=== PATIENT | female | born 1940 | race Caucasian/White ===

== ENCOUNTER 2019-06-09 17:39 | Inpatient (IN) ==
[2019-06-09] MEDS ORDERED: SODIUM CHLORIDE 0.9% 500 ML IV STA (18:26)
[2019-06-09 19:07] LABS: Basophils % 0.1 % (0.0-0.8); Eosinophils % 0.1 % (0.00-10.9); Hematocrit 37.6 VOL% (35.7-47.0); Hemoglobin 12.9 GM/DL (12.0-16.0); Immature Granulocytes % 0.6 %; Immature Granulocytes Absolute 0.09 #; Lymphocytes # 1.6 10*3/uL (1.4-4.0); Lymphocytes % 10.5 % (21.3-54.2); Mean Corpuscular HGB Conc 34.3 GM/DL (32-36); Mean Corpuscular Volume 89.7 FL (87-102); Mean Platelet Volume 9.3 FL (9.6-12.0); Monocytes % 8.9 % (1.7-12.7); Neutrophils % 79.8 % (38.7-73.9); Platelet Count 308 T/CUMM (130-400); Red Blood Count 4.19 MC/CUMM (3.8-5.5); Red Cell Distribution Width 13.7 % (9.3-17.3); White Blood Count 15.1 T/CUMM (4-12)
[2019-06-09 19:17] LABS: PT Patient Result 11.1 SECS (9.6-12.2); Partial Thromboplastin Time 27.2 SECS (20.8-36.0)
[2019-06-09 19:27] LABS: ABG Base Excess 4.8 MMOL/L (-2.5-2.5); ABG HCO3 28.7 MMOL/L (20-26); ABG Oxygen Saturation 96.2 % (95-100); ABG PH 7.466 (7.35-7.45); ABG PO2 71.8 MM HG (80-95); Pt O2 Delivery Device Room Air
[2019-06-09 19:32] LABS: Alanine Aminotransferase 19 U/L (13-56); Alkaline Phosphatase 51 U/L (45-117); Aspartate Amino Transferase 19 U/L (0-37); Bilirubin,Total < 0.39 MG/DL (0.2-1.0); Blood Urea Nitrogen 8 MG/DL (7-18); Calcium 8.2 MG/DL (8.5-10.1); Estimated Glom Filtration Rate 72 ML/MIN; Glucose 124 MG/DL (74-106); Osmolality,Calculated 255.1 MOS/KG (273-304); Thyroid Stimulating Hormone 0.742 uIU/ml (0.358-3.74); Total Protein 6.2 G/DL (6.4-8.3)
[2019-06-09 19:34] LABS: Apearance,Urine CLOUDY (Clear); Bacteria,Urine Few /HPF (Few); Bilirubin,Urine Negative (Negative); Blood, Urine Moderate mg/dL (Negative); Glucose,Urine (UA) Negative (Negative); Ketones,Urine Negative (Negative); Nitrite,Urine Positive (Negative); Protein,Urine 30 MG/DL; RBC,Urine 11 /HPF (0-4); Squamous Epithelial Cell,Urine Occasional /HPF (0-10); Urine Color Yellow (Yellow); Urine Specific Gravity 1.012 (1.001-1.035); WBC,Urine 297 /HPF (0-6)
[2019-06-09 19:41] LABS: Barbiturates Screen,Urine Negative (Negative); Benzodiazepines Screen,Urine Negative (Negative); Cannabinoid Screen,Urine Negative (Negative); Opiate Screen,Urine Negative (Negative); Phencyclidine Screen,Urine Negative (Negative)
[2019-06-09] MEDS ORDERED: ASPIRIN CHEW 81 MG TABLET PO STA (19:54)
[2019-06-09] MEDS ORDERED: LEVOFLOXACIN INJ 500 MG in PREMIX 1 EACH IV STA (19:54)
[2019-06-09] MEDS ORDERED: methylPREDNISolone SOD SUC 125 MG/2 ML VIAL IV STA (22:02)
[2019-06-09] MEDS ORDERED: NICOTINE 21 MG/24 HR PATCH TRANSDERM PRN (22:02)
[2019-06-09] MEDS ORDERED: ONDANSETRON 4 MG/2 ML VIAL IV PRN (22:02)
[2019-06-09 22:25] LABS: Risk Ratio 4.24; VLDL CHOLESTEROL 31.6 MG/DL
[2019-06-10] MEDS: ALBUTEROL/IPRATROPIUM 3 ML NEB RESP TX SCH ×4 (00:45→20:15)
[2019-06-10] MEDS: SODIUM CHLORIDE 0.9% 1,000 ML IV SCH ×3 (01:35→22:17)
[2019-06-10] MEDS: SIMVASTATIN 40 MG TABLET PO SCH ×2 (01:36→22:01)
[2019-06-10] MEDS: METOPROLOL SUCCINATE XL 25 MG TABLET PO SCH ×2 (01:36→22:07)
[2019-06-10] MEDS: diphenhydrAMINE CAP 25 MG CAPSULE PO PRN ×2 (01:36→22:06)
[2019-06-10] MEDS: LORazepam 1 MG TABLET PO SCH ×4 (01:37→21:58)
[2019-06-10] MEDS: LISINOPRIL 5 MG TABLET PO SCH ×2 (01:37→22:07)
[2019-06-10] MEDS: GABAPENTIN 100 MG CAPSULE PO SCH ×3 (01:37→21:59)
[2019-06-10] MEDS: PANTOPRAZOLE 40 MG TABLET PO SCH ×2 (01:37→22:00)
[2019-06-10 08:11] LABS: Calcium 8.2 MG/DL (8.5-10.1); Osmolality,Calculated 267.4 MOS/KG (273-304)
[2019-06-10] MEDS ORDERED: ENOXAPARIN 40 MG/0.4 ML SYRINGE SUBCUT SCH (09:00)
[2019-06-10] MEDS ORDERED: ASPIRIN 325 MG TABLET PO SCH (09:00)
[2019-06-10] MEDS: cefTRIAXone 1,000 MG in SYRINGE 1 EACH IV SCH (10:25)
[2019-06-10] MEDS ORDERED: NITROGLYCERIN SL 0.4 MG TABLET SL PRN (14:03)
[2019-06-10] MEDS ORDERED: POTASSIUM CHLORIDE RIDER 10 MEQ in PREMIX 1 EACH IV PRN (14:10)
[2019-06-10] MEDS ORDERED: MAGNESIUM SULF RIDER 2 GM in PREMIX 1 EACH IV PRN (14:10)
[2019-06-10] MEDS ORDERED: MAGNESIUM SULF RIDER 2 GM in PREMIX 1 EACH IV ONE (14:12)
[2019-06-10] MEDS ORDERED: POTASSIUM CHLORIDE 20 MEQ TABLET PO ONE (14:12)
[2019-06-10] MEDS: ASPIRIN EC 81 MG TABLET PO SCH (14:45)
[2019-06-10] MEDS: NEOMYCIN/POLYMYXIN/BACITRACIN OINT 0.9 GM PACK TOP SCH (18:28)
[2019-06-10] MEDS ORDERED: EZETIMIBE 10 MG TABLET PO SCH (21:00)
[2019-06-10] MEDS ORDERED: LEVOFLOXACIN INJ 500 MG in PREMIX 1 EACH IV SCH (21:00)
[2019-06-10] MEDS: ENOXAPARIN 40 MG/0.4 ML SYRINGE SUBCUT SCH (22:09)
[2019-06-11] MEDS: SODIUM CHLORIDE 0.9% 1,000 ML IV SCH ×2 (00:57→11:12)
[2019-06-11] MEDS: ALBUTEROL/IPRATROPIUM 3 ML NEB RESP TX SCH ×3 (03:41→13:10)
[2019-06-11 05:43] LABS: Basophils % 0.1 % (0.0-0.8); Hemoglobin 11.1 GM/DL (12.0-16.0); Immature Granulocytes % 0.9 %; Immature Granulocytes Absolute 0.11 #; Lymphocytes # 1.3 10*3/uL (1.4-4.0); Mean Corpuscular HGB Conc 33.6 GM/DL (32-36); Mean Corpuscular Volume 91.7 FL (87-102); Mean Platelet Volume 9.6 FL (9.6-12.0); Monocytes % 8.8 % (1.7-12.7); Neutrophils % 80.2 % (38.7-73.9); Platelet Count 263 T/CUMM (130-400); Red Cell Distribution Width 13.9 % (9.3-17.3); White Blood Count 12.9 T/CUMM (4-12)
[2019-06-11 06:16] LABS: Calcium 8.2 MG/DL (8.5-10.1); Osmolality,Calculated 264.5 MOS/KG (273-304)
[2019-06-11] MEDS: cefTRIAXone 1,000 MG in SYRINGE 1 EACH IV SCH (07:47)
[2019-06-11] MEDS: LORazepam 1 MG TABLET PO SCH ×3 (07:47→21:15)
[2019-06-11] MEDS: GABAPENTIN 100 MG CAPSULE PO SCH ×2 (09:20→21:15)
[2019-06-11] MEDS: ASPIRIN EC 81 MG TABLET PO SCH (09:20)
[2019-06-11] MEDS: ENOXAPARIN 40 MG/0.4 ML SYRINGE SUBCUT SCH ×2 (09:20→21:15)
[2019-06-11] MEDS: NEOMYCIN/POLYMYXIN/BACITRACIN OINT 0.9 GM PACK TOP SCH (09:25)
[2019-06-11] MEDS ORDERED: LIDOCAINE 1% 20 ML VIAL ONE (11:22)
[2019-06-11] MEDS ORDERED: HEPARIN/NACL 0.9% 2 UNITS/ML 1,000 ML IV ONE (11:22)
[2019-06-11] MEDS ORDERED: NITROGLYCERIN DRIP 50 MG/250 ML BOTTLE IV ONE (11:43)
[2019-06-11] MEDS ORDERED: VERAPAMIL 5 MG/2 ML VIAL ONE (11:43)
[2019-06-11] MEDS ORDERED: HYDROmorphone 2 MG/1 ML VIAL ONE (11:45)
[2019-06-11] MEDS ORDERED: MIDAZOLAM 2 MG/2 ML VIAL ONE (11:46)
[2019-06-11] MEDS ORDERED: diphenhydrAMINE CAP 25 MG CAPSULE PO ONE (12:00)
[2019-06-11] MEDS ORDERED: DIAZEPAM 5 MG TABLET PO ONE (12:00)
[2019-06-11] MEDS ORDERED: BIVALIRUDIN 250 MG VIAL IV ONE (12:01)
[2019-06-11] MEDS ORDERED: TICAGRELOR 90 MG TABLET ONE (12:26)
[2019-06-11] MEDS ORDERED: SODIUM CHLORIDE 0.9% 1,000 ML IV SCH (12:30)
[2019-06-11] MEDS: DILTIAZEM CD 180 MG CAPSULE PO SCH (18:42)
[2019-06-11] MEDS ORDERED: ROSUVASTATIN 20 MG TABLET PO SCH (21:00)
[2019-06-11] MEDS: PANTOPRAZOLE 40 MG TABLET PO SCH (21:14)
[2019-06-11] MEDS: METOPROLOL SUCCINATE XL 25 MG TABLET PO SCH (21:14)
[2019-06-11] MEDS: ASCORBIC ACID 500 MG TABLET PO SCH (21:14)
[2019-06-11] MEDS: LISINOPRIL 5 MG TABLET PO SCH (21:15)
[2019-06-11] MEDS: diphenhydrAMINE CAP 25 MG CAPSULE PO PRN (21:35)
[2019-06-12] MEDS: SODIUM CHLORIDE 0.9% 1,000 ML IV SCH ×2 (00:55→14:05)
[2019-06-12 04:29] LABS: Basophils % 0.1 % (0.0-0.8); Eosinophils # 0.1 10*3/uL (0.0-0.87); Eosinophils % 0.4 % (0.00-10.9); Hematocrit 31.8 VOL% (35.7-47.0); Hemoglobin 10.5 GM/DL (12.0-16.0); Immature Granulocytes % 0.5 %; Immature Granulocytes Absolute 0.07 #; Lymphocytes % 14.4 % (21.3-54.2); Mean Platelet Volume 9.6 FL (9.6-12.0); Monocytes % 11.8 % (1.7-12.7); Neutrophils % 72.8 % (38.7-73.9); Platelet Count 289 T/CUMM (130-400); Red Blood Count 3.42 MC/CUMM (3.8-5.5); Red Cell Distribution Width 14.4 % (9.3-17.3); White Blood Count 13.6 T/CUMM (4-12)
[2019-06-12 04:52] LABS: Blood Urea Nitrogen 8 MG/DL (7-18); Calcium 8.2 MG/DL (8.5-10.1); Estimated Glom Filtration Rate 79 ML/MIN; Glucose 126 MG/DL (74-106); Osmolality,Calculated 261.7 MOS/KG (273-304)
[2019-06-12 04:54] LABS: Troponin I 0.084 NG/ML (0.00-0.045)
[2019-06-12] MEDS: LORazepam 1 MG TABLET PO SCH ×2 (06:24→13:11)
[2019-06-12] MEDS: ASCORBIC ACID 500 MG TABLET PO SCH (08:43)
[2019-06-12] MEDS: DILTIAZEM CD 180 MG CAPSULE PO SCH (08:43)
[2019-06-12] MEDS: ASPIRIN EC 81 MG TABLET PO SCH (08:43)
[2019-06-12] MEDS: GABAPENTIN 100 MG CAPSULE PO SCH (08:43)
[2019-06-12] MEDS: cefTRIAXone 1,000 MG in SYRINGE 1 EACH IV SCH (08:50)
[2019-06-12] MEDS: ENOXAPARIN 40 MG/0.4 ML SYRINGE SUBCUT SCH (08:53)
[2019-06-12] MEDS ORDERED: MAGNESIUM SULF RIDER 2 GM in PREMIX 1 EACH IV ONE (12:14)
[2019-06-12] MEDS ORDERED: MAGNESIUM OXIDE 400 MG TABLET PO SCH (12:30)
[2019-06-12] MEDS ORDERED: POTASSIUM CHLORIDE 20 MEQ TABLET PO SCH (12:30)
[2019-06-12] MEDS ORDERED: TICAGRELOR 90 MG TABLET PO SCH (12:30)
[2019-06-12 15:59] VITALS: BP 131/68
== END 2019-06-12 16:40 | disposition home health service (06) | DRG 247 ==
LOC: EDUNIT# → EDBD → N.EDINP 17:39 → N.ED 17:39 → N.TELES 23:30 → SUATTDRO 06-10 03:20
PROVIDERS: ADMIT Hospitalist; ATTEND Hospitalist

== ENCOUNTER 2020-01-24 08:35 | Inpatient (IN) ==
[2020-01-24 09:49] LABS: Basophils % 0.3 % (0.0-0.8); Eosinophils # 0.1 10*3/uL (0.0-0.87); Eosinophils % 0.5 % (0.00-10.9); Hematocrit 38.1 VOL% (35.7-47.0); Hemoglobin 12.9 GM/DL (12.0-16.0); Immature Granulocytes % 0.4 %; Immature Granulocytes Absolute 0.05 #; Lymphocytes # 1.6 10*3/uL (1.4-4.0); Lymphocytes % 12.3 % (21.3-54.2); Mean Corpuscular HGB Conc 33.9 GM/DL (32-36); Mean Corpuscular Volume 94.8 FL (87-102); Mean Platelet Volume 9.3 FL (9.6-12.0); Monocytes % 7.3 % (1.7-12.7); Neutrophils % 79.2 % (38.7-73.9); Platelet Count 283 T/CUMM (130-400); Red Blood Count 4.02 MC/CUMM (3.8-5.5); Red Cell Distribution Width 14.4 % (9.3-17.3); White Blood Count 12.8 T/CUMM (4-12)
[2020-01-24 10:09] LABS: Apearance,Urine CLEAR (Clear); Bilirubin,Urine Negative (Negative); Blood, Urine Negative (Negative); Glucose,Urine (UA) Negative (Negative); Hyaline Casts,Urine 1 /LPF (0-3); Ketones,Urine Negative (Negative); Nitrite,Urine Negative (Negative); Protein,Urine Negative; RBC,Urine <1 /HPF (0-4); Urine Color Yellow (Yellow); Urine Specific Gravity 1.009 (1.001-1.035); Urine Urobilinogen < 2.0 EU/DL (0.2-1.0); WBC,Urine 1 /HPF (0-6)
[2020-01-24 10:14] LABS: Alanine Aminotransferase 18 U/L (13-56); Albumin 2.8 G/DL (3.4-5.0); Alkaline Phosphatase 60 U/L (45-117); Aspartate Amino Transferase 18 U/L (0-37); Bilirubin,Total < 0.39 MG/DL (0.2-1.0); Blood Urea Nitrogen 7 MG/DL (7-18); Calcium 8.6 MG/DL (8.5-10.1); Estimated Glom Filtration Rate 69 ML/MIN; Glucose 97 MG/DL (74-106); Osmolality,Calculated 263.4 MOS/KG (273-304); Prealbumin 13.4 MG/DL (20-40); Total Protein 6.6 G/DL (6.4-8.3)
[2020-01-24] MEDS ORDERED: POTASSIUM CHLORIDE 20 MEQ TABLET PO STA (11:09)
[2020-01-24] MEDS ORDERED: ONDANSETRON 4 MG/2 ML VIAL IV PRN (12:35)
[2020-01-24] MEDS ORDERED: hydrALAZINE 20 MG/1 ML VIAL IV PRN (12:35)
[2020-01-24] MEDS ORDERED: GLUCAGON 1 MG VIAL IM PRN (12:35)
[2020-01-24] MEDS ORDERED: ACETAMINOPHEN 325 MG TABLET PO PRN (12:35)
[2020-01-24] MEDS ORDERED: DEXTROSE 50% 25 GM/50 ML VIAL IV PRN (12:35)
[2020-01-24 13:09] LABS: Risk Ratio 3.91; Thyroid Stimulating Hormone 2.66 uIU/ml (0.358-3.74)
[2020-01-24] MEDS: POTASSIUM CHLORIDE INJ 30 MEQ in DEXTROSE 5% NACL 0.45% 1,000 ML IV SCH (15:11)
[2020-01-24] MEDS: POTASSIUM CHLORIDE RIDER 10 MEQ in PREMIX 1 EACH IV PRN ×2 (15:57→17:31)
[2020-01-24 16:19] LABS: ABG Base Excess 8.6 MMOL/L (-2.5-2.5); ABG HCO3 32.3 MMOL/L (20-26); ABG Oxygen Saturation 93.7 % (95-100); ABG PCO2 56.2 MM HG (35-48); ABG PH 7.408 (7.35-7.45); ABG PO2 69.2 MM HG (80-95); ABG TCO2 30.9 MMOL/L (23-27); Allen Test Positive; Pt O2 Delivery Device Room Air
[2020-01-24] MEDS: DILTIAZEM CD 180 MG CAPSULE PO SCH (16:48)
[2020-01-24] MEDS: CHOLECALCIFEROL 1,000 UNIT TABLET PO SCH (16:48)
[2020-01-24] MEDS: CIPROFLOXACIN INJ 400 MG in PREMIX 1 EACH IV SCH (16:49)
[2020-01-24] MEDS: CYANOCOBALAMIN 500 MCG TABLET PO SCH (16:49)
[2020-01-24] MEDS: FERROUS SULFATE 325 MG TABLET PO SCH (16:49)
[2020-01-24] MEDS: cefTRIAXone 1,000 MG in SYRINGE 1 EACH IV SCH (17:33)
[2020-01-24] MEDS: metroNIDAZOLE INJ 500 MG in PREMIX 1 EACH IV SCH (18:31)
[2020-01-24] MEDS: CARBOXYMETHYLCELLULOSE 1% OPH SOLN BOTH EYES SCH ×2 (18:37→22:46)
[2020-01-24] MEDS ORDERED: ROSUVASTATIN 20 MG TABLET PO SCH (21:00)
[2020-01-24] MEDS ORDERED: METOPROLOL SUCCINATE XL 25 MG TABLET PO SCH (21:00)
[2020-01-24] MEDS: LORazepam 1 MG TABLET PO SCH (22:09)
[2020-01-24] MEDS: FAMOTIDINE 20 MG TABLET PO SCH (22:09)
[2020-01-24] MEDS: GABAPENTIN 100 MG CAPSULE PO SCH (22:14)
[2020-01-24] MEDS: ASCORBIC ACID 500 MG TABLET PO SCH (22:15)
[2020-01-24] MEDS: MAGNESIUM OXIDE 400 MG TABLET PO SCH (22:17)
[2020-01-24] MEDS: KETOROLAC 0.5% OPH SOLN 5 ML BOTTLE BOTH EYES SCH (22:46)
[2020-01-24] MEDS: OFLOXACIN 0.3% OPH SOLN 5 ML BOTTLE BOTH EYES SCH (22:46)
[2020-01-24] MEDS: prednisoLONE ACETATE 1% OPH SUSP 5 ML BOTTLE BOTH EYES SCH (22:46)
[2020-01-25] MEDS: POTASSIUM CHLORIDE INJ 30 MEQ in DEXTROSE 5% NACL 0.45% 1,000 ML IV SCH ×3 (00:35→12:05)
[2020-01-25] MEDS: metroNIDAZOLE INJ 500 MG in PREMIX 1 EACH IV SCH ×3 (00:43→17:41)
[2020-01-25] MEDS: CIPROFLOXACIN INJ 400 MG in PREMIX 1 EACH IV SCH ×2 (05:15→16:47)
[2020-01-25 06:30] LABS: Basophils % 0.2 % (0.0-0.8); Eosinophils # 0.1 10*3/uL (0.0-0.87); Eosinophils % 0.6 % (0.00-10.9); Hematocrit 32.9 VOL% (35.7-47.0); Immature Granulocytes % 0.5 %; Immature Granulocytes Absolute 0.04 #; Lymphocytes # 2.3 10*3/uL (1.4-4.0); Lymphocytes % 26.6 % (21.3-54.2); Mean Corpuscular HGB Conc 32.2 GM/DL (32-36); Mean Corpuscular Volume 98.2 FL (87-102); Mean Platelet Volume 9.7 FL (9.6-12.0); Monocytes % 9.7 % (1.7-12.7); Neutrophils % 62.4 % (38.7-73.9); Platelet Count 290 T/CUMM (130-400); Red Blood Count 3.35 MC/CUMM (3.8-5.5); Red Cell Distribution Width 14.6 % (9.3-17.3); White Blood Count 8.5 T/CUMM (4-12)
[2020-01-25 06:33] LABS: Albumin 2.5 G/DL (3.4-5.0); Bilirubin,Total 0.5 MG/DL (0.2-1.0); Calcium 8.4 MG/DL (8.5-10.1); Hemoglobin 10.6 GM/DL (12.0-16.0); Osmolality,Calculated 264.4 MOS/KG (273-304); Total Protein 5.9 G/DL (6.4-8.3)
[2020-01-25] MEDS: LORazepam 1 MG TABLET PO SCH ×3 (07:18→22:00)
[2020-01-25] MEDS ORDERED: PANTOPRAZOLE 40 MG TABLET PO SCH (09:00)
[2020-01-25] MEDS ORDERED: ALUM/MAG/SIMETH/LIDO VISC 1:1 30 ML BOTTLE PO ONE (09:25)
[2020-01-25] MEDS ORDERED: KETOROLAC 15 MG/1 ML VIAL IV ONE (09:26)
[2020-01-25] MEDS: KETOROLAC 0.5% OPH SOLN 5 ML BOTTLE BOTH EYES SCH ×2 (09:33→22:54)
[2020-01-25] MEDS: FAMOTIDINE 20 MG TABLET PO SCH ×2 (09:33→23:00)
[2020-01-25] MEDS: OFLOXACIN 0.3% OPH SOLN 5 ML BOTTLE BOTH EYES SCH ×2 (09:33→22:57)
[2020-01-25] MEDS: FERROUS SULFATE 325 MG TABLET PO SCH (09:34)
[2020-01-25] MEDS: DILTIAZEM CD 180 MG CAPSULE PO SCH (09:34)
[2020-01-25] MEDS: GABAPENTIN 100 MG CAPSULE PO SCH ×2 (09:36→23:00)
[2020-01-25] MEDS: CHOLECALCIFEROL 1,000 UNIT TABLET PO SCH ×2 (09:36→23:01)
[2020-01-25] MEDS: ASPIRIN EC 81 MG TABLET PO SCH (09:36)
[2020-01-25] MEDS: ASCORBIC ACID 500 MG TABLET PO SCH ×2 (09:36→23:01)
[2020-01-25] MEDS: MAGNESIUM OXIDE 400 MG TABLET PO SCH ×2 (09:36→23:00)
[2020-01-25] MEDS: CARBOXYMETHYLCELLULOSE 1% OPH SOLN BOTH EYES SCH ×4 (09:38→22:58)
[2020-01-25] MEDS: prednisoLONE ACETATE 1% OPH SUSP 5 ML BOTTLE BOTH EYES SCH ×2 (09:38→22:59)
[2020-01-25 11:28] LABS: Troponin I < 0.015 NG/ML (0.00-0.045)
[2020-01-25 14:40] LABS: Troponin I < 0.015 NG/ML (0.00-0.045)
[2020-01-25] MEDS: SODIUM CHLORIDE 0.9% 1,000 ML IV SCH ×4 (14:42→17:40)
[2020-01-25] MEDS: cefTRIAXone 1,000 MG in SYRINGE 1 EACH IV SCH (16:24)
[2020-01-25] MEDS ORDERED: SODIUM CHLORIDE 0.9% 1,000 ML IV SCH (19:00)
[2020-01-25 19:25] LABS: Amorphous Crystals,Urine Occasional /HPF (Few); Apearance,Urine Slightly Hazy (Clear); Bacteria,Urine Many /HPF (Few); Bilirubin,Urine Negative (Negative); Blood, Urine Small mg/dL (Negative); Glucose,Urine (UA) Negative (Negative); Hyaline Casts,Urine 8 /LPF (0-3); Ketones,Urine Negative (Negative); Mucus,Urine Occasional /LPF (Occasional); Nitrite,Urine Negative (Negative); Protein,Urine Negative; RBC,Urine 4 /HPF (0-4); Squamous Epithelial Cell,Urine Occasional /HPF (0-10); Urine Color Yellow (Yellow); Urine Specific Gravity 1.029 (1.001-1.035); Urine Urobilinogen < 2.0 EU/DL (0.2-1.0)
[2020-01-25] MEDS ORDERED: CLOPIDOGREL 75 MG TABLET PO SCH (21:00)
[2020-01-25] MEDS: ROSUVASTATIN 20 MG TABLET PO SCH (23:01)
[2020-01-26] MEDS: metroNIDAZOLE INJ 500 MG in PREMIX 1 EACH IV SCH ×3 (00:37→17:30)
[2020-01-26] MEDS: CIPROFLOXACIN INJ 400 MG in PREMIX 1 EACH IV SCH ×2 (04:42→16:25)
[2020-01-26 06:19] LABS: Basophils % 0.3 % (0.0-0.8); Eosinophils # 0.1 10*3/uL (0.0-0.87); Eosinophils % 0.8 % (0.00-10.9); Hematocrit 34.8 VOL% (35.7-47.0); Hemoglobin 11.3 GM/DL (12.0-16.0); Immature Granulocytes % 0.5 %; Immature Granulocytes Absolute 0.04 #; Lymphocytes # 1.5 10*3/uL (1.4-4.0); Lymphocytes % 17.1 % (21.3-54.2); Mean Corpuscular HGB Conc 32.5 GM/DL (32-36); Mean Corpuscular Volume 96.4 FL (87-102); Mean Platelet Volume 9.9 FL (9.6-12.0); Monocytes % 9.6 % (1.7-12.7); Neutrophils % 71.7 % (38.7-73.9); Platelet Count 269 T/CUMM (130-400); Red Blood Count 3.61 MC/CUMM (3.8-5.5); Red Cell Distribution Width 14.3 % (9.3-17.3); White Blood Count 8.8 T/CUMM (4-12)
[2020-01-26 06:51] LABS: Calcium 8.6 MG/DL (8.5-10.1); Osmolality,Calculated 265.1 MOS/KG (273-304)
[2020-01-26 06:54] LABS: Albumin 2.6 G/DL (3.4-5.0); Bilirubin,Total 0.4 MG/DL (0.2-1.0); Calcium 8.8 MG/DL (8.5-10.1); Osmolality,Calculated 264.2 MOS/KG (273-304); Total Protein 6.1 G/DL (6.4-8.3)
[2020-01-26] MEDS: ASPIRIN EC 81 MG TABLET PO SCH (08:51)
[2020-01-26] MEDS: CYANOCOBALAMIN 500 MCG TABLET PO SCH (08:51)
[2020-01-26] MEDS: CHOLECALCIFEROL 1,000 UNIT TABLET PO SCH ×3 (08:52→21:46)
[2020-01-26] MEDS: FERROUS SULFATE 325 MG TABLET PO SCH (08:54)
[2020-01-26] MEDS: OFLOXACIN 0.3% OPH SOLN 5 ML BOTTLE BOTH EYES SCH ×2 (08:54→21:44)
[2020-01-26] MEDS: GABAPENTIN 100 MG CAPSULE PO SCH ×2 (08:54→21:40)
[2020-01-26] MEDS: FAMOTIDINE 20 MG TABLET PO SCH ×2 (08:54→21:39)
[2020-01-26] MEDS: MAGNESIUM OXIDE 400 MG TABLET PO SCH ×2 (08:54→21:40)
[2020-01-26] MEDS: ASCORBIC ACID 500 MG TABLET PO SCH ×2 (08:54→21:41)
[2020-01-26] MEDS: CARBOXYMETHYLCELLULOSE 1% OPH SOLN BOTH EYES SCH ×4 (08:55→21:41)
[2020-01-26] MEDS: prednisoLONE ACETATE 1% OPH SUSP 5 ML BOTTLE BOTH EYES SCH ×2 (08:55→21:43)
[2020-01-26] MEDS: KETOROLAC 0.5% OPH SOLN 5 ML BOTTLE BOTH EYES SCH ×2 (09:01→21:41)
[2020-01-26] MEDS: LORazepam 1 MG TABLET PO SCH ×3 (09:10→21:40)
[2020-01-26] MEDS: POTASSIUM CHLORIDE RIDER 10 MEQ in PREMIX 1 EACH IV SCH ×2 (12:53→14:20)
[2020-01-26] MEDS: cefTRIAXone 1,000 MG in SYRINGE 1 EACH IV SCH (18:25)
[2020-01-26] MEDS: ROSUVASTATIN 20 MG TABLET PO SCH (21:39)
[2020-01-27] MEDS: metroNIDAZOLE INJ 500 MG in PREMIX 1 EACH IV SCH ×2 (00:54→09:10)
[2020-01-27] MEDS: CIPROFLOXACIN INJ 400 MG in PREMIX 1 EACH IV SCH (05:02)
[2020-01-27 05:48] LABS: Basophils # 0.1 10*3/uL (0.0-0.2); Basophils % 0.6 % (0.0-0.8); Eosinophils # 0.1 10*3/uL (0.0-0.87); Eosinophils % 0.9 % (0.00-10.9); Hematocrit 37.2 VOL% (35.7-47.0); Hemoglobin 12.5 GM/DL (12.0-16.0); Immature Granulocytes % 0.3 %; Immature Granulocytes Absolute 0.03 #; Lymphocytes # 1.8 10*3/uL (1.4-4.0); Lymphocytes % 17.2 % (21.3-54.2); Mean Corpuscular HGB Conc 33.6 GM/DL (32-36); Mean Corpuscular Volume 92.5 FL (87-102); Monocytes % 9.7 % (1.7-12.7); Neutrophils % 71.3 % (38.7-73.9); Platelet Count 309 T/CUMM (130-400); Red Blood Count 4.02 MC/CUMM (3.8-5.5); Red Cell Distribution Width 13.8 % (9.3-17.3); White Blood Count 10.7 T/CUMM (4-12)
[2020-01-27 06:02] LABS: Albumin 2.9 G/DL (3.4-5.0); Calcium 9.2 MG/DL (8.5-10.1); Osmolality,Calculated 260.5 MOS/KG (273-304); Total Protein 6.8 G/DL (6.4-8.3)
[2020-01-27] MEDS: LORazepam 1 MG TABLET PO SCH ×2 (06:24→13:51)
[2020-01-27] MEDS: KETOROLAC 0.5% OPH SOLN 5 ML BOTTLE BOTH EYES SCH (09:10)
[2020-01-27] MEDS: FAMOTIDINE 20 MG TABLET PO SCH (09:11)
[2020-01-27] MEDS: FERROUS SULFATE 325 MG TABLET PO SCH (09:11)
[2020-01-27] MEDS: OFLOXACIN 0.3% OPH SOLN 5 ML BOTTLE BOTH EYES SCH (09:11)
[2020-01-27] MEDS: MAGNESIUM OXIDE 400 MG TABLET PO SCH (09:11)
[2020-01-27] MEDS: prednisoLONE ACETATE 1% OPH SUSP 5 ML BOTTLE BOTH EYES SCH (09:11)
[2020-01-27] MEDS: CARBOXYMETHYLCELLULOSE 1% OPH SOLN BOTH EYES SCH ×2 (09:11→13:51)
[2020-01-27] MEDS: GABAPENTIN 100 MG CAPSULE PO SCH (09:11)
[2020-01-27] MEDS: CHOLECALCIFEROL 1,000 UNIT TABLET PO SCH ×2 (09:11)
[2020-01-27] MEDS: ASCORBIC ACID 500 MG TABLET PO SCH (09:11)
[2020-01-27] MEDS: ASPIRIN EC 81 MG TABLET PO SCH (09:11)
[2020-01-27 12:19] VITALS: BP 143/62
== END 2020-01-27 13:02 | disposition home or self-care (01) | DRG 312 ==
LOC: EDUNIT# → EDBD → N.ED 08:35 → N.EDINP 12:35 → SUATTDRO 12:35 → N.EDINP 14:14 → N.TELEN 14:30
PROVIDERS: ADMIT Hospitalist; ATTEND Internal Medicine

== ENCOUNTER 2021-08-21 16:31 | Inpatient (IN) ==
[2021-08-21] MEDS ORDERED: ONDANSETRON 4 MG/2 ML VIAL IV STA (17:36)
[2021-08-21] MEDS ORDERED: HYDROmorphone 2 MG/1 ML VIAL IV STA (17:36)
[2021-08-21 18:58] LABS: Basophils # 0.1 10*3/uL (0.0-0.2); Basophils % 0.5 % (0.0-0.8); Eosinophils # 0.1 10*3/uL (0.0-0.87); Eosinophils % 0.8 % (0.00-10.9); Hematocrit 41.2 VOL% (35.7-47.0); Hemoglobin 13.5 GM/DL (12.0-16.0); Immature Granulocytes % 0.4 %; Immature Granulocytes Absolute 0.04 #; Lymphocytes # 1.7 10*3/uL (1.4-4.0); Lymphocytes % 16.7 % (21.3-54.2); Mean Corpuscular HGB Conc 32.8 GM/DL (32-36); Mean Corpuscular Volume 95.6 FL (87-102); Mean Platelet Volume 9.4 FL (9.6-12.0); Monocytes % 6.7 % (1.7-12.7); Neutrophils % 74.9 % (38.7-73.9); Platelet Count 351 T/CUMM (130-400); Red Blood Count 4.31 MC/CUMM (3.8-5.5); Red Cell Distribution Width 14.5 % (9.3-17.3)
[2021-08-21 19:12] LABS: Alanine Aminotransferase 18 U/L (13-56); Albumin 3.3 G/DL (3.4-5.0); Alkaline Phosphatase 67 U/L (45-117); Aspartate Amino Transferase 18 U/L (0-37); Bilirubin,Total < 0.39 MG/DL (0.20-1.00); Blood Urea Nitrogen 10 MG/DL (7-18); Carbon Dioxide 33 MMOL/L (21-32); Estimated Glom Filtration Rate 75 ML/MIN; Glucose 131 MG/DL (74-106); Osmolality,Calculated 266.4 MOS/KG (273-304); Potassium 3.9 MMOL/L (3.5-5.1); Sodium 133 MMOL/L (136-145); Total Protein 7.1 G/DL (6.4-8.2)
[2021-08-21 19:17] LABS: PT Patient Result 11.2 SECS (10.5-12.0)
[2021-08-21] MEDS ORDERED: GLUCAGON 1 MG VIAL IM PRN (19:22)
[2021-08-21] MEDS ORDERED: DOCUSATE SODIUM 100 MG CAPSULE PO PRN (19:28)
[2021-08-21] MEDS ORDERED: LACTULOSE 20 GM/30 ML UDCUP PO PRN (19:28)
[2021-08-21] MEDS ORDERED: DEXTROSE 10% 250 ML BAG IV PRN (19:42)
[2021-08-21] MEDS: LACTULOSE 20 GM/30 ML UDCUP PO SCH (19:48)
[2021-08-21] MEDS: HYDROmorphone 2 MG/1 ML VIAL IV PRN (19:49)
[2021-08-21] MEDS ORDERED: LORazepam 1 MG TABLET PO STA (20:31)
[2021-08-21] MEDS: ONDANSETRON 4 MG/2 ML VIAL IV PRN (20:45)
[2021-08-21] MEDS: methylPREDNISolone SOD SUC 40 MG/1 ML VIAL IV SCH (20:49)
[2021-08-21] MEDS ORDERED: methylPREDNISolone SOD SUC 40 MG/1 ML VIAL ONE (20:51)
[2021-08-22] MEDS: ALBUTEROL/IPRATROPIUM 3 ML NEB RESP TX SCH ×4 (00:54→19:35)
[2021-08-22] MEDS: LACTULOSE 20 GM/30 ML UDCUP PO SCH ×7 (01:23→23:47)
[2021-08-22] MEDS: HYDROmorphone 2 MG/1 ML VIAL IV PRN ×2 (01:23→09:09)
[2021-08-22] MEDS: ONDANSETRON 4 MG/2 ML VIAL IV PRN ×3 (01:24→22:44)
[2021-08-22 05:26] LABS: Basophils % 0.2 % (0.0-0.8); Hematocrit 41.6 VOL% (35.7-47.0); Hemoglobin 13.4 GM/DL (12.0-16.0); Immature Granulocytes % 0.8 %; Immature Granulocytes Absolute 0.09 #; Lymphocytes # 0.4 10*3/uL (1.4-4.0); Lymphocytes % 3.3 % (21.3-54.2); Mean Corpuscular HGB Conc 32.2 GM/DL (32-36); Mean Corpuscular Volume 95.6 FL (87-102); Mean Platelet Volume 9.8 FL (9.6-12.0); Monocytes % 1.3 % (1.7-12.7); Neutrophils % 94.4 % (38.7-73.9); Platelet Count 333 T/CUMM (130-400); Red Blood Count 4.35 MC/CUMM (3.8-5.5); Red Cell Distribution Width 14.5 % (9.3-17.3); White Blood Count 11.1 T/CUMM (4-12)
[2021-08-22 05:42] LABS: Calcium 9.2 MG/DL (8.5-10.1); Osmolality,Calculated 273.5 MOS/KG (273-304); Potassium 3.7 MMOL/L (3.5-5.1)
[2021-08-22 06:22] LABS: Lymphocytes 3 % (20-55); Platelet Estimate Adequate; Segmented Neutrophils 97 % (50-85); Total Cells Counted 100
[2021-08-22] MEDS ORDERED: DEXTROSE 50% 25 GM/50 ML VIAL IV PRN (06:38)
[2021-08-22] MEDS: methylPREDNISolone SOD SUC 40 MG/1 ML VIAL IV SCH ×2 (09:09→20:32)
[2021-08-22] MEDS: ASPIRIN EC 81 MG TABLET PO SCH (10:31)
[2021-08-22] MEDS: INSULIN LISPRO 100 UNIT/ML SUBCUT SCH ×4 (10:31→21:35)
[2021-08-22] MEDS: PANTOPRAZOLE 40 MG TABLET PO SCH (10:32)
[2021-08-22] MEDS: DILTIAZEM CD 180 MG CAPSULE PO SCH (10:32)
[2021-08-22] MEDS: LORazepam 1 MG TABLET PO SCH ×3 (10:32→20:33)
[2021-08-22] MEDS ORDERED: BUPIVACAINE SPINAL 0.75% 2 ML AMP SPINAL ONE (10:40)
[2021-08-22] MEDS ORDERED: DEXMEDETOMIDINE 200 MCG/2 ML VIAL ONE (10:40)
[2021-08-22] MEDS ORDERED: ONDANSETRON 4 MG/2 ML VIAL ONE (10:40)
[2021-08-22] MEDS ORDERED: BUPIVACAINE MPF 0.25% 30 ML VIAL ONE (11:15)
[2021-08-22] MEDS ORDERED: DEXAMETHASONE 4 MG/1 ML VIAL ONE (11:15)
[2021-08-22] MEDS ORDERED: LIDOCAINE 1% 5 ML VIAL ONE (11:16)
[2021-08-22] MEDS ORDERED: BACITRACIN OINT 0.9 GM PACK TOP ONE (11:33)
[2021-08-22] MEDS ORDERED: LACTATED RINGERS 1,000 ML IV SCH (12:00)
[2021-08-22] MEDS ORDERED: ALBUTEROL 1.25 MG/3 ML NEB RESP TX PRN (12:15)
[2021-08-22] MEDS ORDERED: oxyCODONE/ACETAMINOPHEN 5-325 MG TABLET PO PRN ×2 (12:31)
[2021-08-22] MEDS ORDERED: GLYCOPYRROLATE 0.4 MG/2 ML VIAL ONE (12:46)
[2021-08-22] MEDS ORDERED: TRANEXAMIC ACID 1,000 MG/10 ML VIAL ONE (13:04)
[2021-08-22] MEDS: LACTATED RINGERS 1,000 ML IV SCH ×2 (14:16→17:12)
[2021-08-22] MEDS: CARBOXYMETHYLCELLULOSE 1% OPH SOLN BOTH EYES SCH ×2 (17:12→21:35)
[2021-08-22] MEDS ORDERED: hydrALAZINE 20 MG/1 ML VIAL IV PRN (18:18)
[2021-08-22] MEDS: ROSUVASTATIN 20 MG TABLET PO SCH (20:32)
[2021-08-22] MEDS: traZODone 50 MG TABLET PO PRN (20:33)
[2021-08-22] MEDS: GABAPENTIN 100 MG CAPSULE PO SCH (20:33)
[2021-08-22] MEDS: ASCORBIC ACID 500 MG TABLET PO SCH (20:33)
[2021-08-22] MEDS ORDERED: diphenhydrAMINE CAP 50 MG CAPSULE PO PRN (22:58)
[2021-08-22] MEDS: ACETAMINOPHEN 325 MG TABLET PO PRN (23:42)
[2021-08-22] MEDS: diphenhydrAMINE CAP 25 MG CAPSULE PO PRN (23:42)
[2021-08-23] MEDS: ALBUTEROL/IPRATROPIUM 3 ML NEB RESP TX SCH ×4 (00:50→19:35)
[2021-08-23] MEDS: LACTULOSE 20 GM/30 ML UDCUP PO SCH ×2 (03:38→08:36)
[2021-08-23] MEDS: LACTATED RINGERS 1,000 ML IV SCH (03:39)
[2021-08-23 05:24] LABS: Basophils % 0.2 % (0.0-0.8); Hematocrit 31.8 VOL% (35.7-47.0); Hemoglobin 10.4 GM/DL (12.0-16.0); Immature Granulocytes % 0.5 %; Immature Granulocytes Absolute 0.07 #; Lymphocytes # 0.7 10*3/uL (1.4-4.0); Lymphocytes % 5.2 % (21.3-54.2); Mean Corpuscular HGB Conc 32.7 GM/DL (32-36); Mean Corpuscular Volume 94.6 FL (87-102); Mean Platelet Volume 10.2 FL (9.6-12.0); Monocytes % 3.1 % (1.7-12.7); Platelet Count 249 T/CUMM (130-400); Red Blood Count 3.36 MC/CUMM (3.8-5.5); Red Cell Distribution Width 14.3 % (9.3-17.3)
[2021-08-23 05:45] LABS: Calcium 8.4 MG/DL (8.5-10.1); Osmolality,Calculated 263.7 MOS/KG (273-304); Potassium 3.8 MMOL/L (3.5-5.1)
[2021-08-23 05:48] LABS: Hypochromia Slight; Lymphocytes 5 % (20-55); Microcytosis Slight; Platelet Estimate Adequate; Segmented Neutrophils 94 % (50-85); Total Cells Counted 100
[2021-08-23 05:50] LABS: Risk Ratio 2.86; VLDL Cholesterol 16.4 MG/DL
[2021-08-23] MEDS ORDERED: KETOROLAC 15 MG/1 ML VIAL IV PRN (07:55)
[2021-08-23] MEDS: ROSUVASTATIN 20 MG TABLET PO SCH (08:34)
[2021-08-23] MEDS: ASPIRIN EC 81 MG TABLET PO SCH (08:34)
[2021-08-23] MEDS: DILTIAZEM CD 180 MG CAPSULE PO SCH (08:35)
[2021-08-23] MEDS: ACETAMINOPHEN 325 MG TABLET PO PRN ×3 (08:35→20:36)
[2021-08-23] MEDS: MAGNESIUM OXIDE 400 MG TABLET PO SCH (08:35)
[2021-08-23] MEDS: LORazepam 1 MG TABLET PO SCH ×3 (08:35→20:36)
[2021-08-23] MEDS: ASCORBIC ACID 500 MG TABLET PO SCH ×2 (08:35→20:36)
[2021-08-23] MEDS: PANTOPRAZOLE 40 MG TABLET PO SCH (08:35)
[2021-08-23] MEDS: INSULIN LISPRO 100 UNIT/ML SUBCUT SCH ×4 (08:36→20:34)
[2021-08-23] MEDS ORDERED: CLOPIDOGREL 75 MG TABLET PO SCH (09:00)
[2021-08-23] MEDS ORDERED: hydrALAZINE 10 MG TABLET PO SCH (09:00)
[2021-08-23] MEDS ORDERED: predniSONE 20 MG TABLET PO SCH (09:00)
[2021-08-23 11:19] LABS: RBC,Urine 7 /HPF (0-4)
[2021-08-23 11:21] LABS: Bilirubin,Urine Negative (Negative); Blood, Urine Trace mg/dL (Negative); Glucose,Urine (UA) Negative (Negative); Ketones,Urine Negative (Negative); Nitrite,Urine Negative (Negative); Protein,Urine Negative; Urine Appearance Clear (Clear); Urine Color Yellow (Yellow); Urine Urobilinogen 0.2 EU/DL (<2.0); Urine pH 6.5 (4.5-8.0)
[2021-08-23] MEDS: GABAPENTIN 100 MG CAPSULE PO SCH ×2 (11:30→20:35)
[2021-08-23] MEDS: CARBOXYMETHYLCELLULOSE 1% OPH SOLN BOTH EYES SCH ×4 (11:30→20:36)
[2021-08-23] MEDS: DOCUSATE SODIUM 100 MG CAPSULE PO SCH ×2 (11:31→20:36)
[2021-08-23] MEDS: cefTRIAXone 1,000 MG in SODIUM CHLORIDE 0.9% 100 ML IV SCH (13:10)
[2021-08-23] MEDS: traZODone 50 MG TABLET PO PRN (20:36)
[2021-08-23] MEDS: diphenhydrAMINE CAP 25 MG CAPSULE PO PRN (20:36)
[2021-08-24] MEDS: ALBUTEROL/IPRATROPIUM 3 ML NEB RESP TX SCH ×4 (00:36→19:31)
[2021-08-24 06:38] LABS: Basophils % 0.1 % (0.0-0.8); Hematocrit 28.6 VOL% (35.7-47.0); Hemoglobin 9.4 GM/DL (12.0-16.0); Immature Granulocytes % 0.8 %; Immature Granulocytes Absolute 0.09 #; Mean Corpuscular HGB Conc 32.9 GM/DL (32-36); Mean Corpuscular Volume 94.1 FL (87-102); Mean Platelet Volume 10.3 FL (9.6-12.0); Monocytes % 8.4 % (1.7-12.7); Neutrophils % 81.7 % (38.7-73.9); Platelet Count 243 T/CUMM (130-400); Red Blood Count 3.04 MC/CUMM (3.8-5.5); Red Cell Distribution Width 14.7 % (9.3-17.3); White Blood Count 11.1 T/CUMM (4-12)
[2021-08-24 06:51] LABS: Calcium 8.8 MG/DL (8.5-10.1); Osmolality,Calculated 268.4 MOS/KG (273-304)
[2021-08-24 07:06] LABS: Lymphocytes 7 % (20-55); Platelet Estimate Adequate; Segmented Neutrophils 86 % (50-85); Total Cells Counted 100
[2021-08-24] MEDS ORDERED: hydrALAZINE 10 MG TABLET PO SCH (09:00)
[2021-08-24] MEDS: INSULIN LISPRO 100 UNIT/ML SUBCUT SCH ×4 (09:28→21:31)
[2021-08-24] MEDS: LORazepam 1 MG TABLET PO SCH ×3 (09:29→21:29)
[2021-08-24] MEDS: MAGNESIUM OXIDE 400 MG TABLET PO SCH (09:29)
[2021-08-24] MEDS: ASPIRIN EC 81 MG TABLET PO SCH (09:29)
[2021-08-24] MEDS: ROSUVASTATIN 20 MG TABLET PO SCH (09:29)
[2021-08-24] MEDS: PANTOPRAZOLE 40 MG TABLET PO SCH (09:29)
[2021-08-24] MEDS: DOCUSATE SODIUM 100 MG CAPSULE PO SCH ×2 (09:29→21:30)
[2021-08-24] MEDS: GABAPENTIN 100 MG CAPSULE PO SCH ×2 (09:29→21:29)
[2021-08-24] MEDS: DILTIAZEM CD 180 MG CAPSULE PO SCH (09:29)
[2021-08-24] MEDS: POLYETHYLENE GLYCOL POWDER 17 GM PACK PO SCH (09:29)
[2021-08-24] MEDS: ASCORBIC ACID 500 MG TABLET PO SCH ×2 (09:30→21:35)
[2021-08-24] MEDS: CARBOXYMETHYLCELLULOSE 1% OPH SOLN BOTH EYES SCH ×4 (09:30→21:29)
[2021-08-24] MEDS: ACETAMINOPHEN 325 MG TABLET PO PRN ×3 (13:02→21:30)
[2021-08-24] MEDS: cefTRIAXone 1,000 MG in SODIUM CHLORIDE 0.9% 100 ML IV SCH (14:04)
[2021-08-24] MEDS ORDERED: BISACODYL 10 MG SUPP RECTAL ONE (14:30)
[2021-08-24] MEDS: HEPARIN 5,000 UNIT/1 ML VIAL SUBCUT SCH (18:23)
[2021-08-24] MEDS: diphenhydrAMINE CAP 25 MG CAPSULE PO PRN (21:29)
[2021-08-24] MEDS: CLOPIDOGREL 75 MG TABLET PO SCH (21:30)
[2021-08-25] MEDS: ALBUTEROL/IPRATROPIUM 3 ML NEB RESP TX SCH ×4 (00:13→19:37)
[2021-08-25 05:57] LABS: Basophils % 0.1 % (0.0-0.8); Eosinophils % 0.3 % (0.00-10.9); Hematocrit 28.6 VOL% (35.7-47.0); Hemoglobin 9.6 GM/DL (12.0-16.0); Immature Granulocytes % 0.5 %; Immature Granulocytes Absolute 0.04 #; Lymphocytes # 2.4 10*3/uL (1.4-4.0); Lymphocytes % 27.6 % (21.3-54.2); Mean Corpuscular HGB Conc 33.6 GM/DL (32-36); Mean Corpuscular Volume 94.1 FL (87-102); Mean Platelet Volume 10.4 FL (9.6-12.0); Monocytes % 8.2 % (1.7-12.7); Neutrophils % 63.3 % (38.7-73.9); Platelet Count 238 T/CUMM (130-400); Red Blood Count 3.04 MC/CUMM (3.8-5.5); Red Cell Distribution Width 14.9 % (9.3-17.3); White Blood Count 8.8 T/CUMM (4-12)
[2021-08-25 06:08] LABS: Potassium 3.6 MMOL/L (3.5-5.1)
[2021-08-25] MEDS: HEPARIN 5,000 UNIT/1 ML VIAL SUBCUT SCH ×2 (06:08→17:11)
[2021-08-25] MEDS: ROSUVASTATIN 20 MG TABLET PO SCH (09:00)
[2021-08-25] MEDS: ASPIRIN EC 81 MG TABLET PO SCH (09:01)
[2021-08-25] MEDS: GABAPENTIN 100 MG CAPSULE PO SCH ×2 (09:01→22:00)
[2021-08-25] MEDS: DOCUSATE SODIUM 100 MG CAPSULE PO SCH ×2 (09:01→22:00)
[2021-08-25] MEDS: LORazepam 1 MG TABLET PO SCH ×3 (09:01→22:00)
[2021-08-25] MEDS: MAGNESIUM OXIDE 400 MG TABLET PO SCH (09:01)
[2021-08-25] MEDS: DILTIAZEM CD 180 MG CAPSULE PO SCH (09:02)
[2021-08-25] MEDS: ASCORBIC ACID 500 MG TABLET PO SCH ×2 (09:02→22:00)
[2021-08-25] MEDS: POLYETHYLENE GLYCOL POWDER 17 GM PACK PO SCH ×2 (09:02→22:00)
[2021-08-25] MEDS: PANTOPRAZOLE 40 MG TABLET PO SCH (09:02)
[2021-08-25] MEDS: INSULIN LISPRO 100 UNIT/ML SUBCUT SCH ×2 (09:03→12:26)
[2021-08-25] MEDS: CARBOXYMETHYLCELLULOSE 1% OPH SOLN BOTH EYES SCH ×2 (09:09→12:03)
[2021-08-25] MEDS: ACETAMINOPHEN 325 MG TABLET PO PRN ×3 (09:10→22:07)
[2021-08-25] MEDS: cefTRIAXone 1,000 MG in SODIUM CHLORIDE 0.9% 100 ML IV SCH (12:02)
[2021-08-25] MEDS ORDERED: CARBOXYMETHYLCELLULOSE 1% OPH SOLN BOTH EYES PRN (12:39)
[2021-08-25] MEDS ORDERED: BISACODYL 10 MG SUPP RECTAL ONE (15:11)
[2021-08-25] MEDS: CLOPIDOGREL 75 MG TABLET PO SCH (22:00)
[2021-08-25] MEDS: diphenhydrAMINE CAP 25 MG CAPSULE PO PRN (22:06)
[2021-08-26] MEDS: ALBUTEROL/IPRATROPIUM 3 ML NEB RESP TX SCH ×2 (01:02→07:05)
[2021-08-26 05:26] LABS: Basophils % 0.1 % (0.0-0.8); Eosinophils # 0.1 10*3/uL (0.0-0.87); Eosinophils % 0.9 % (0.00-10.9); Hematocrit 28.6 VOL% (35.7-47.0); Hemoglobin 9.4 GM/DL (12.0-16.0); Immature Granulocytes % 0.5 %; Immature Granulocytes Absolute 0.04 #; Lymphocytes # 2.4 10*3/uL (1.4-4.0); Lymphocytes % 30.7 % (21.3-54.2); Mean Corpuscular HGB Conc 32.9 GM/DL (32-36); Mean Corpuscular Volume 94.7 FL (87-102); Mean Platelet Volume 10.5 FL (9.6-12.0); Neutrophils % 59.8 % (38.7-73.9); Platelet Count 238 T/CUMM (130-400); Red Blood Count 3.02 MC/CUMM (3.8-5.5); Red Cell Distribution Width 14.9 % (9.3-17.3); White Blood Count 7.8 T/CUMM (4-12)
[2021-08-26 05:46] LABS: Calcium 7.9 MG/DL (8.5-10.1); Potassium 3.8 MMOL/L (3.5-5.1)
[2021-08-26 05:59] LABS: Atypical Lymphocytes Few; Hypochromia 1+; Lymphocytes 31 % (20-55); Microcytosis Slight; Platelet Estimate Normal; Segmented Neutrophils 59 % (50-85); Target Cells Slight; Total Cells Counted 100
[2021-08-26] MEDS: ACETAMINOPHEN 325 MG TABLET PO PRN (07:36)
[2021-08-26] MEDS: PANTOPRAZOLE 40 MG TABLET PO SCH (07:36)
[2021-08-26] MEDS: ASPIRIN EC 81 MG TABLET PO SCH (08:46)
[2021-08-26] MEDS: DILTIAZEM CD 180 MG CAPSULE PO SCH (08:46)
[2021-08-26] MEDS: LORazepam 1 MG TABLET PO SCH (08:46)
[2021-08-26] MEDS: GABAPENTIN 100 MG CAPSULE PO SCH (08:47)
[2021-08-26] MEDS: ROSUVASTATIN 20 MG TABLET PO SCH (08:47)
[2021-08-26] MEDS: MAGNESIUM OXIDE 400 MG TABLET PO SCH (08:47)
[2021-08-26] MEDS: DOCUSATE SODIUM 100 MG CAPSULE PO SCH (08:47)
[2021-08-26] MEDS: POLYETHYLENE GLYCOL POWDER 17 GM PACK PO SCH (08:47)
[2021-08-26] MEDS: ASCORBIC ACID 500 MG TABLET PO SCH (08:47)
[2021-08-26] MEDS ORDERED: HEPARIN 5,000 UNIT/1 ML VIAL SUBCUT SCH (09:00)
[2021-08-26 11:46] VITALS: BP 145/67
[2021-08-26] MEDS: cefTRIAXone 1,000 MG in SODIUM CHLORIDE 0.9% 100 ML IV SCH (13:35)
== END 2021-08-26 14:15 | DRG 481 ==
LOC: EDBD → EDUNIT# → N.ED 16:31 → N.EDINP 19:21 → N.3E 08-22 02:26
PROVIDERS: ADMIT Hospitalist; ATTEND Hospitalist

== ENCOUNTER 2021-09-24 08:35 | Observation (INO) ==
[2021-09-24] MEDS ORDERED: SODIUM CHLORIDE 0.9% 1,000 ML IV STA (09:25)
[2021-09-24] MEDS ORDERED: ALBUTEROL/IPRATROPIUM 3 ML NEB RESP TX STA (09:25)
[2021-09-24 09:36] LABS: Basophils % 0.4 % (0.0-0.8); Eosinophils % 0.1 % (0.00-10.9); Hematocrit 55.7 VOL% (35.7-47.0); Hemoglobin 18.2 GM/DL (12.0-16.0); Immature Granulocytes % 0.4 %; Immature Granulocytes Absolute 0.03 #; Lymphocytes # 0.6 10*3/uL (1.4-4.0); Lymphocytes % 8.5 % (21.3-54.2); Mean Corpuscular HGB Conc 32.7 GM/DL (32-36); Mean Corpuscular Volume 90.4 FL (87-102); Mean Platelet Volume 9.3 FL (9.6-12.0); Monocytes # 0.4 10*3/uL (0.11-0.8); Monocytes % 5.2 % (1.7-12.7); Neutrophils % 85.4 % (38.7-73.9); Platelet Count 306 T/CUMM (130-400); Red Blood Count 6.16 MC/CUMM (3.8-5.5); Red Cell Distribution Width 14.6 % (9.3-17.3); White Blood Count 7.3 T/CUMM (4-12)
[2021-09-24 09:58] LABS: Albumin 3.3 G/DL (3.4-5.0); Bilirubin,Total 0.4 MG/DL (0.20-1.00); Calcium 9.7 MG/DL (8.5-10.1); Osmolality,Calculated 255.2 MOS/KG (273-304); Thyroid Stimulating Hormone 2.4 uIU/ml (0.358-3.74); Total Protein 8.1 G/DL (6.4-8.2)
[2021-09-24 10:42] LABS: RBC,Urine <1 /HPF (0-4); Squamous Epithelial Cell,Urine Occasional /HPF (0-10); Urine Appearance Clear (Clear); Urine Color Yellow (Yellow)
[2021-09-24 10:43] LABS: Bilirubin,Urine Negative (Negative); Blood, Urine Negative (Negative); Glucose,Urine (UA) Negative (Negative); Ketones,Urine Negative (Negative); Nitrite,Urine Negative (Negative); Protein,Urine 30 mg/dL (Negative); Urine Specific Gravity 1.015 (1.001-1.035); Urine Urobilinogen 0.2 eU/dL (<2.0)
[2021-09-24] MEDS: LACTATED RINGERS 1,000 ML IV SCH (12:00)
[2021-09-24] MEDS ORDERED: GLUCAGON 1 MG VIAL IM PRN (12:38)
[2021-09-24] MEDS ORDERED: ALBUTEROL 2.5 MG/3 ML NEB RESP TX PRN (12:38)
[2021-09-24] MEDS ORDERED: ACETAMINOPHEN 325 MG TABLET PO PRN (12:38)
[2021-09-24] MEDS ORDERED: ONDANSETRON 4 MG/2 ML VIAL IV PRN (12:38)
[2021-09-24] MEDS ORDERED: hydrALAZINE 20 MG/1 ML VIAL IV PRN (12:38)
[2021-09-24] MEDS ORDERED: guaiFENesin/DM ER 600-30 MG TABLET PO PRN (12:38)
[2021-09-24] MEDS ORDERED: LACTULOSE 20 GM/30 ML UDCUP PO PRN (12:38)
[2021-09-24] MEDS ORDERED: SODIUM PHOSPHATE ENEMA 133 ML BOTTLE RECTAL STA (12:41)
[2021-09-24] MEDS ORDERED: SODIUM PHOSPHATE ENEMA 133 ML BOTTLE RECTAL ONE (12:41)
[2021-09-24] MEDS ORDERED: SODIUM PHOSPHATE ENEMA 133 ML BOTTLE RECTAL PRN (12:41)
[2021-09-24] MEDS ORDERED: DEXTROSE 10% 250 ML BAG IV PRN (12:53)
[2021-09-24] MEDS: ENOXAPARIN 40 MG/0.4 ML SYRINGE SUBCUT SCH (13:45)
[2021-09-24] MEDS: POLYETHYLENE GLYCOL POWDER 17 GM PACK PO SCH ×2 (13:45→21:25)
[2021-09-24] MEDS ORDERED: LORazepam 1 MG TABLET PO SCH (21:00)
[2021-09-24] MEDS: DOCUSATE SODIUM 100 MG CAPSULE PO SCH (21:25)
[2021-09-24] MEDS: ASCORBIC ACID 500 MG TABLET PO SCH (21:26)
[2021-09-24] MEDS: GABAPENTIN 100 MG CAPSULE PO SCH (21:26)
[2021-09-25] MEDS: LACTATED RINGERS 1,000 ML IV SCH ×3 (02:41→11:50)
[2021-09-25 04:38] LABS: Basophils % 0.4 % (0.0-0.8); Eosinophils % 0.4 % (0.00-10.9); Hemoglobin 11.1 GM/DL (12.0-16.0); Immature Granulocytes % 0.4 %; Immature Granulocytes Absolute 0.03 #; Lymphocytes # 1.4 10*3/uL (1.4-4.0); Lymphocytes % 20.2 % (21.3-54.2); Mean Corpuscular HGB Conc 31.7 GM/DL (32-36); Mean Corpuscular Volume 92.6 FL (87-102); Mean Platelet Volume 9.4 FL (9.6-12.0); Monocytes # 0.8 10*3/uL (0.11-0.8); Monocytes % 11.9 % (1.7-12.7); Neutrophils % 66.7 % (38.7-73.9); Platelet Count 354 T/CUMM (130-400); Red Blood Count 3.78 MC/CUMM (3.8-5.5); Red Cell Distribution Width 14.6 % (9.3-17.3); White Blood Count 7.1 T/CUMM (4-12)
[2021-09-25 04:57] LABS: Alanine Aminotransferase 19 U/L (13-56); Alkaline Phosphatase 104 U/L (45-117); Aspartate Amino Transferase 19 U/L (0-37); Bilirubin,Total < 0.39 MG/DL (0.20-1.00); Blood Urea Nitrogen 7 MG/DL (7-18); Calcium 8.3 MG/DL (8.5-10.1); Carbon Dioxide 34 MMOL/L (21-32); Chloride 91 MMOL/L (98-107); Estimated Glom Filtration Rate 89 ML/MIN; Glucose 102 MG/DL (74-106); Osmolality,Calculated 261.5 MOS/KG (273-304); Potassium 3.1 MMOL/L (3.5-5.1); Sodium 132 MMOL/L (136-145); Total Protein 5.8 G/DL (6.4-8.2)
[2021-09-25 07:25] VITALS: BP 152/58
[2021-09-25] MEDS ORDERED: POTASSIUM CHLORIDE 20 MEQ TABLET PO ONE (08:32)
[2021-09-25] MEDS ORDERED: ASPIRIN EC 81 MG TABLET PO SCH (09:00)
[2021-09-25] MEDS ORDERED: CHOLECALCIFEROL 5,000 UNIT TABLET PO SCH (09:00)
[2021-09-25] MEDS ORDERED: PANTOPRAZOLE 40 MG TABLET PO SCH (09:00)
[2021-09-25] MEDS ORDERED: CLOPIDOGREL 75 MG TABLET PO SCH (09:00)
[2021-09-25] MEDS ORDERED: DILTIAZEM CD 180 MG CAPSULE PO SCH (09:00)
[2021-09-25] MEDS: ASCORBIC ACID 500 MG TABLET PO SCH (09:33)
[2021-09-25] MEDS: DOCUSATE SODIUM 100 MG CAPSULE PO SCH (09:33)
[2021-09-25] MEDS: GABAPENTIN 100 MG CAPSULE PO SCH (09:33)
[2021-09-25] MEDS: POLYETHYLENE GLYCOL POWDER 17 GM PACK PO SCH (11:37)
[2021-09-25] MEDS: ENOXAPARIN 40 MG/0.4 ML SYRINGE SUBCUT SCH (14:09)
[2021-09-25] MEDS ORDERED: ROSUVASTATIN 20 MG TABLET PO SCH (21:00)
== END 2021-09-25 13:03 | disposition home health service (06) ==
LOC: N.3E 08:35 → N.ED 08:35 → N.3E 14:40
PROVIDERS: ADMIT Internal Medicine; ATTEND Internal Medicine